=== PATIENT | female | born 1965 | race Caucasian/White ===

== ENCOUNTER → 2017-09-23 09:04 | Outpatient (CLI) | payer OTHER, SELFPAY ==
--- NOTE | 2017-09-23 09:08 | MM_ITS ---
MM Dig screening mamm BI w/CAD CAD Screening ORDERING PHYSICIAN : Angel Murphy PATIENT AGE: 52 years GENDER: Female COMPARISON: Previous mammograms: 2016, with July 2015, 2014 and 2013 mammogram as well INDICATION: Routine screening. A 2-year-old. No hormones no new complaints laboratory family history TECHNIQUE: Standard CC and MLO images were obtained. R2 CAD reviewed. FINDINGS: Low-density breast bilaterally with no dominant mass nor suspicious calcifications in either breast. Stable mild asymmetry with minimal fibroglandular elements are slightly more evident and nodular in character towards upper outer quadrant left breast. These are stable since 2014 and 2013 left mammogram. These can be followed in one year. No significant new areas of concern. . Scattered tiny calcifications most likely reflect skin calcifications generous similar to prior studies. These can be followed in one year. IMPRESSION: Basically Stable mammogram With No significant interval change Bilateral follow-up in one year BI-RADS Category: 2 Benign Finding(s) RECOMMENDED FOLLOW-UP: 1YR - 1 YEAR FOLLOW-UP (A letter has been sent to the patient regarding results of the study.)
== END ==
PROVIDERS: PCP Pediatrics; Visit Provider Internal Medicine
DX: Z12.31 Encounter for screening mammogram for malignant neoplasm of breast (principal)
CPT/HCPCS: 77067

== ENCOUNTER → 2018-10-31 09:29 | Outpatient (CLI) | payer OTHER, SELFPAY ==
--- NOTE | 2018-10-31 09:32 | MM_ITS ---
MM Dig screening mamm BI w/CAD CAD Screening COMPARISON: Digital mammograms with CAD 09/23/2017 and 09/21/2016 INDICATION: There is no personal or family history of breast cancer TECHNIQUE: Standard CC and MLO images were obtained. R2 CAD reviewed. FINDINGS: The breasts are composed primarily of fat with minimal scattered fiber glandular densities throughout each breast. A few scattered benign-appearing microcalcifications in each breast similar which may be cutaneous and nature. There is a stable tiny nodular density upper outer quadrant left breast. There is no suspicious lesion and there are no suspicious microcalcifications. IMPRESSION: Fibrofatty parenchyma with no suspicious lesion seen BI-RADS Category: 2 Benign Finding(s) RECOMMENDED FOLLOW-UP: 1YR - 1 YEAR FOLLOW-UP (A letter has been sent to the patient regarding results of the study.)
== END ==
PROVIDERS: PCP Internal Medicine; Visit Provider Internal Medicine
DX: Z12.31 Encounter for screening mammogram for malignant neoplasm of breast (principal)
CPT/HCPCS: 77067